=== PATIENT | male | born 1980 | race Caucasian/White ===

== ENCOUNTER 2018-05-02 16:20 | Emergency (ER) | payer BC ==
[~2018-05-02] VITALS: Ht 185.4 cm; Wt 119.2 kg
[2018-05-02 16:56] LABS: HEMATOCRIT 48.3 % (38.0-50.0); HEMOGLOBIN 17.2 G/DL (12.5-16.6); MCH 31.2 PG (29.0-34.0); MCHC 35.6 G/DL (30.0-36.0); MCV 87.5 FL (86-99); PLATELET COUNT 259 K/uL (156-360); RBC DIS.WIDTH-CV 11.9 % (11.8-14.6); RBC DIS.WIDTH-SD 38.5 % (39-53); RED BLOOD COUNT 5.52 M/uL (4.00-5.50); WHITE BLOOD COUNT 13.7 K/uL (4.1-10.2)
[2018-05-02 17:05] LABS: ALBUMIN 4.7 g/dL (3.2-4.8)
[2018-05-02 17:06] LABS: CHLORIDE 102 mEq/L (99-109); POTASSIUM 4.5 mEq/L (3.7-5.4); SODIUM 137 mEq/L (136-147)
[2018-05-02 17:08] LABS: GLUCOSE 118 mg/dL (70-99); TOTAL PROTEIN 7.7 g/dL (6.4-8.3)
[2018-05-02 17:10] LABS: TOTAL BILIRUBIN 1.1 mg/dL (0.0-1.0)
[2018-05-02 17:11] LABS: ALKALINE PHOSPHATASE 79 IU/L (3-129)
[2018-05-02 17:12] LABS: CREATININE 0.9 mg/dL (0.6-1.3); GFR ESTIMATE (CALCULATED) > 59 mL/min/ (58.99-99999)
[2018-05-02 17:13] LABS: AST (GOT) 37 IU/L (2-34); UREA NITROGEN (BUN) 13 mg/dL (9-23)
[2018-05-02 17:14] LABS: ALT (GPT) 58 IU/L (3-49)
[2018-05-02 17:15] LABS: LIPASE 56 U/L (1.0-51.0)
[2018-05-02 19:00] VITALS: BP 134/92
== END 2018-05-02 19:00 | disposition home or self-care (01) ==
LOC: EME 16:20
DX: K56.41 Fecal impaction (principal); J45.909 Unspecified asthma, uncomplicated; Z90.49 Acquired absence of other specified parts of digestive tract
CPT/HCPCS: 74019; 80053; 81003; 83690; 85027; 99281; 99284